=== PATIENT | female | born 1950 | race Caucasian/White ===

== ENCOUNTER → 2017-02-01 | Day surgery (SDC) | payer MEDICARE, OTHER ==
[~2017-02-01] VITALS: Ht 160 cm; Wt 57.2 kg
[~2017-02-01] MED LIST: AMBIEN10 MG PO; ATIVAN 1 MG1 MG PO; CYMBALTA60 MG PO; KEPPRA750 MG PO; MULTI-DAY VITA1 EACH PO; PROTONIX40 MG PO; REQUIP1 MG PO; SOMA350 MG PO; TYLENOL/COD#3**1 TAB PO
== END | disposition disaster alternative care site (69) ==
LOC: GPOC 01-28 09:00 → GEND 08:27 → GPOC 09:00
PROC: 0DB98ZX Excision of Duodenum, Via Natural or Artificial Opening Endoscopic, Diagnostic (ICD-10-PCS; principal; 2017-02-01)
PROC: 0DB38ZX Excision of Lower Esophagus, Via Natural or Artificial Opening Endoscopic, Diagnostic (ICD-10-PCS; 2017-02-01)
DX: K20.9 Esophagitis, unspecified (principal); M79.7 Fibromyalgia; G40.909 Epilepsy, unspecified, not intractable, without status epilepticus; F32.9 Major depressive disorder, single episode, unspecified; Z90.49 Acquired absence of other specified parts of digestive tract; Z98.51 Tubal ligation status; Z98.890 Other specified postprocedural states
CPT/HCPCS: J1100; J2001; J2405; J7030